=== PATIENT | female | born 1955 | race Caucasian/White ===

== ENCOUNTER 2018-10-18 05:42 | Day surgery (SDC) | payer BC, OTHER ==
[2018-10-18] MEDS ORDERED: PROPOFOL 200 MG/20 ML VIAL IV ONE (10:00)
[2018-10-18] MEDS ORDERED: LIDOCAINE 1% 10 ML VIAL INJ ONE (10:00)
[2018-10-18] MEDS ORDERED: LACTATED RINGERS 1,000 ML ONE (13:46)
--- NOTE | 2018-10-18 14:29 | OP ---
DATE OF PROCEDURE: 10/18/18 PREPROCEDURE DIAGNOSIS: 1. Colorectal cancer screening. POSTPROCEDURE DIAGNOSIS: 1. Normal colon. PROCEDURE: 1. Colonoscopy. SURGEON: Jose Daigle MD COMPLICATIONS: No immediate complications. SEDATION: The patient was sedated via IV propofol by the Anesthesia Department. CONSENT: Prior to the procedure, risks, benefits and alternatives to the therapy were discussed with the patient. The risks included bleeding, infection, perforation and . The patient agreed to the procedure and signed a consent. PREPROCEDURE ANESTHESIA ASSESSMENT: An examination revealed no contraindication to sedation. Airway examination demonstrated a Mallampati class type 2, ASA grade assessment type 2. Throughout the procedure, the patient's vital signs were closely monitored. PROCEDURE: The patient was placed in the left lateral decubitus position and a rectal examination was performed. The rectal examination was within normal limits. The Olympus colonoscope was passed in the anus, rectum, traversing the colon to the level of the cecum as identified by the appendiceal orifice and ileocecal valve. The scope was retracted and the mucosa was visualized. The entirety of the exam was performed under direct visualization. Retroflexion was performed in the rectum. Preparation quality was good. The withdrawal time was greater than 6 minutes. The patient tolerated the procedure well. FINDINGS: 1. The entirety of the examination was normal. The colon appeared normal. Retroflexion in the rectum was normal. RECOMMENDATION: 1. Return the patient home. 2. Resume previous diet. Favor plant-based diet and high-fiber foods, cutting down on animal products. 3. Repeat colonoscopy in 10 years for screening purposes. 4. Primary care physician may check FIT/Cologuard in 3 to 5 years' time. 5. Return to referring physicians office as previously scheduled. 6. Return to my office p.r.n. 7. Findings were discussed with the patient and family members. #[id number] [facility]
[2018-10-18 15:13] VITALS: BP 128/79; TEMP 97.7; O2SAT 98
== END 2018-10-18 15:05 | disposition home or self-care (01) ==
LOC: AMB 05:42
PROVIDERS: ATTEND Internal Medicine Gastroenterology
DX: Z12.11 Encounter for screening for malignant neoplasm of colon (principal); Z87.891 Personal history of nicotine dependence; Z79.899 Other long term (current) drug therapy
CPT/HCPCS: 00812; 45378; J3490; J7120